=== PATIENT | female | born 1975 | race Caucasian/White ===

== ENCOUNTER 2019-08-31 13:43 | Emergency (ER) | payer BC, SELFPAY ==
[2019-08-31 13:48] VITALS: BP 147/95; PULSE 76; RESP 16; TEMP 36.2; O2SAT 100
--- NOTE | 2019-08-31 14:05 | ED.URI ---
HPI - URI/Sore Throat General Chief Complaint: Upper Respiratory Infection Stated Complaint: COLD SYMPTOMS/RSV EXPOSURE Time Seen by Provider: 08/31/19 13:45 Source: patient Mode of arrival: ambulatory Limitations: no limitations History of Present Illness HPI Narrative: 44-year-old female presents to urgent care with complaints of runny nose, left ear pain, nasal congestion, dry cough, headache and mild sore throat for the past 2 to 3 days. Patient reports that she was exposed to 2 infants with RSV. Patient denies fever, bites, chills, nausea, vomiting or diarrhea. Patient is non-smoker. Patient denies recent travel. MD elicited complaint: cough, rhinorrhea and nasal congestion Onset (ago): day(s) (2-3) Able to tolerate fluids by mouth: Yes Exacerbating factors: nothing Associated symptoms: cough and ear pain Treatments prior to arrival: none Related Data Home Medications Medication Instructions Recorded Confirmed clonazepam 08/31/19 Allergies Allergy/AdvReac Type Severity Reaction Status Date / Time Sulfa (Sulfonamide Allergy Unknown HIVES Unverified 03/10/14 15:01 Antibiotics) Review of Systems Review of Systems: All systems reviewed & are unremarkable except as noted in HPI and below Constitutional: Constitutional: Denies anorexia, Denies body ache(s) and Denies chills ENT: Reports headache(s), Reports nasal congestion, Reports nasal discharge and Reports sore throat Cardiovascular: Cardiovascular: Denies chest pain Respiratory: Respiratory: Denies change in phlegm color, Denies chest congestion, Reports cough and Denies hemoptysis Gastrointestinal: Gastrointestinal: Denies abdominal pain, Denies diarrhea, Denies nausea and Denies vomiting Neurologic: Denies dizziness [facility] Social History Social History (Updated 08/31/19 @ 14:08 by Jamee Cline APN) Smoking status: Never smoker Exam Const: General: cooperative, healthy appearing, comfortable, no acute distress, well developed, alert, awake and Physically active HENMT: Head: normal to inspection Ears: hearing grossly normal bilaterally, external ears normal and TM's normal bilaterally General nose exam: Normal external nose present, Normal nares present, Normal nasal mucous membranes and turbinates present, Normal septum present, No nasal discharge present and Abnormal external nose present Face and sinus: normal facial exam, sinuses nontender and face symmetric Mouth: Yes Normal oral and palatal mucosa present, Yes lip normal, Yes tongue normal, Yes oropharynx normal and Yes moist mucous membranes Throat: posterior oropharynx normal and uvula midline Neck: Neck: normal visual inspection, full ROM and no lymphadenopathy Lymphatic: no lymphadenopathy noted Resp: Effort & Inspection: normal respiratory effort, able to speak in complete sentences and no audible wheezes Auscultation: clear to auscultation bilaterally Cardio: Jugular venous distension: no JVD Palpation: normal PMI Rate: regular rate Rhythm: regular rhythm Heart sounds: S1 normal heart sound present, S2 normal heart sound present and no murmurs Skin: General skin exam: normal color and no rashes or lesions noted Neuro: General: oriented to person, oriented to place, oriented to time, moves all extremities and no focal motor deficits Gait exam (Neuro): Normal gait present Motor exam (neuro): 5/5 motor strength present throughout Extrem: General: normal to inspection and full ROM Psych: Appearance: grossly normal and well kempt Course Vital Signs Vital signs: Vital Signs Temperature 36.2 C L 08/31/19 13:48 Pulse Rate 76 08/31/19 13:48 Respiratory Rate 16 08/31/19 13:48 Blood Pressure 147/95 H 08/31/19 13:48 Pulse Oximetry 100 08/31/19 13:48 Temperature 36.2 C L 08/31/19 13:48 Pulse Rate 76 08/31/19 13:48 Respiratory Rate 16 08/31/19 13:48 Blood Pressure 147/95 H 08/31/19 13:48 Pulse Oximetry 100 08/31/19 13:48 MDM - URI/So
== END 2019-08-31 14:16 | disposition home or self-care (01) ==
PROVIDERS: Emergency Provider Nurse Practitioner Family; PCP Physician Assistant
DX: J06.9 Acute upper respiratory infection, unspecified (principal)
CPT/HCPCS: 99211; G0463